=== PATIENT | female | born 1980 | race Caucasian/White ===

== ENCOUNTER 2020-11-11 08:23 | Emergency (ER) | payer SELFPAY ==
[2020-11-11 08:50] VITALS: BP 147/93; PULSE 92; RESP 16; TEMP 36.4; O2SAT 98; BMI 27.4
--- NOTE | 2020-11-11 09:04 | ED.DENTAL ---
HPI - Dental/Oral General Chief complaint: Dental/Oral Stated complaint: jaw/dental pain Time Seen by Provider: 11/11/20 09:04 Source: patient Mode of arrival: ambulatory Limitations: no limitations History of Present Illness HPI Narrative: 40 y/o female presenting to the ER with 4 days of severe right lower dental pain. She reports her back molar is cracked and has been causing her severe pain. She is unable to sleep. She has been taking Motrin and Tylenol with no improvement. 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 She denies any facial swelling. No fever or chills. She is able to fully open and close her mouth but fully opening is painful. She is eating and drinking normally. MD Complaint: tooth pain and tooth injury Location: Tooth # (31) Onset (ago): day(s) (4) Duration: worsening Severity: severe Severity scale (1-10): 10 Relieving factors: nothing Exacerbating factors: chewing and cold Context: history of dental caries, trauma (mechanism) and poor dental care Associated symptoms: gum swelling Treatment prior to arrival: topical analgesic and oral analgesic Related Data Previous Rx's Medication Instructions Recorded hydrocodone 5 mg-acetaminophen 325 1 tab PO Q4-6H PRN #10 tab 11/11/20 mg tablet ibuprofen 800 mg tablet 800 mg PO Q8H PRN #20 tab 11/11/20 penicillin V potassium 500 mg 500 mg PO TID 7 Days #21 tab 11/11/20 tablet Allergies Allergy/AdvReac Type Severity Reaction Status Date / Time No Known Allergies Allergy Verified 11/11/20 08:50 Review of Systems Constitutional: Constitutional: Denies chills, Reports difficulty sleeping, Denies fever(s) and Reports headache(s) Eyes: Eyes: Reports no additional eye complaints ENT: Reports Normal hearing present, Reports dental pain, Denies dysphagia, Denies ear discharge, Reports otalgia, Reports facial pain, Reports headache(s), Reports mouth pain, Denies neck pain and Denies sore throat Cardiovascular: Cardiovascular: Denies chest pain and Denies dyspnea Respiratory: Respiratory: Denies cough and Denies dyspnea Gastrointestinal: Gastrointestinal: Denies dysphagia, Denies nausea and Denies vomiting Musculoskeletal: Musculoskeletal: Denies neck pain Neurologic: Reports Normal hearing present and Reports headache(s) Psychiatric: Psychiatric: Reports anxiety PMFSH Social History Social History Advance Directives: No Physical Exam Vital Signs: Vital Signs: Last Vital Signs Temp 97.6 F 11/11/20 08:50 Pulse 92 11/11/20 08:50 Resp 16 11/11/20 08:50 BP 147/93 H 11/11/20 08:50 Pulse Ox 98 11/11/20 08:50 Body Mass Index 27.4 Const: General: cooperative, healthy appearing and no acute distress Nutritional Appearance: average body habitus Orientation/consciousness: patient oriented x3 Limitations: no limitations HENMT: Head: Yes normal to inspection, Yes normocephalic and Yes atraumatic Ears: hearing grossly normal bilaterally, external ears normal and TM's normal bilaterally General nose exam: Normal external nose present and Normal nares present Face and sinus: Yes normal facial exam and Yes face symmetric Mouth: Normal oral and palatal mucosa present, lip normal, tongue normal and moist mucous membranes Teeth and gingiva: abnormal tooth and associated gingiva lower right third molar tender, with associated gingival edema, enamel fractured and dentin fractured; Negative for without associated gingival fluctuance and gingiva abnormal edematous and tender; Negative for without any purulent discharge Throat: Yes posterior oropharynx normal, Yes tonsils normal and Yes uvula midline Eyes: General: appearance normal, both eyes and all related structures Neck: Neck: Yes normal visual inspection and Yes no lymphadenopathy Chest: Chest palpation & inspection: normal inspection of the chest Resp: Effort & Inspection: normal respiratory effort and able to speak in complete sentences Skin: General skin exam: no rashes or lesions noted Neuro: General: patient oriented x3 Cranial nerves: Yes Normal hearing present Extrem: General: Yes normal to inspection Psych: Appearance: grossly normal and well kempt Mental Status: mental status grossly normal Speech and movement: Normal speech and movement present Course Course Course Narrative: 40 y.o female presenting to the ER with 4 days of worsening right lower dental pain in the setting of a broken tooth. No palpable abscess. She is encouraged to call the dentists on the emergency list provided 1st thing tomorrow as she would like the tooth extracted JERRY. Will give ppx abx and pain meds for severe pain. She is stable for d/c home with plan for dental follow up. Discharge Plan Discharge Clinical Impression: Toothache Patient Disposition: Home, Self-Care Instructions: Toothache (ED) Additional Instructions: Call the Emergency Dentists on the list provided tomorrow morning to be seen JERRY Take all of the medications as prescribed. If you develop new or worsening symptoms call 911 or come back to the ER for further evaluation. Prescriptions: New hydrocodone-acetaminophen 5-325 mg tablet 1 tab PO Q4-6H PRN (Reason: pain) Qty: 10 RF: 0 ibuprofen 800 mg tablet 800 mg PO Q8H PRN (Reason: pain) Qty: 20 RF: 0 penicillin V potassium 500 mg tablet 500 mg PO TID 7 Days Qty: 21 RF: 0 Interventions: ED Discharge Assessment Last Done: 11/11/20 09:30 Discharge Date/Time: 11/11/20 09:31
== END 2020-11-11 09:31 | disposition home or self-care (01) ==
PROVIDERS: Emergency Provider Emergency Medicine
DX: K08.89 Other specified disorders of teeth and supporting structures (principal); Z79.899 Other long term (current) drug therapy
CPT/HCPCS: 99283